=== PATIENT | male | born 1965 | race Caucasian/White ===

== ENCOUNTER 2021-06-20 10:54 | Observation (INO) | payer BC ==
--- NOTE | 2021-06-20 14:14 | ED ---
General Adult HPI - General Chief complaint: Arrhythmia/Palpitations Stated complaint: HR Ilregular Time Seen by Provider: 06/20/21 14:00 Source: patient, RN notes reviewed, old records reviewed Mode of arrival: ambulatory Limitations: no limitations - History of Present Illness Initial comments: This is a 56-year-old male who presents emergency Department with no significant past medical history. Patient comes in because he started having palpitations in his chest 9 days ago. Patient states had intermittent episodes since then. Patient states he went to the hospital about a week ago and they placed a monitor on him while in the monitor on he did have an episode but no one is been able to get Bactrim as to what was going on. Patient states he had another episode today lasted about 20 minutes and asked where he decided come to our hospital. Patient denies any chest pain. Patient denies any palpitations currently. Patient shortness of breath or difficulty breathing currently but he states when it occurs he is mildly short of breath. Patient denies any swelling to legs or calf tenderness. Patient denies any abdominal pain patient denies nausea vomiting diarrhea. Patient denies any recent fever chills or cough. - Related Data Home Medications Medication Instructions Recorded Confirmed Beclomethasone Dipropionate [Qvar 1 puff INHALATION RT-DAILY 06/20/21 06/20/21 80mcg Redihaler] Calcium Carbonate [Calcium] 600 mg PO DAILY 06/20/21 06/20/21 Levothyroxine Sodium [Euthyrox] 150 mcg PO DAILY 06/20/21 06/20/21 Montelukast Sodium [Singulair] 10 mg PO DAILY 06/20/21 06/20/21 Multivitamins, Thera [Multivitamin 1 tab PO DAILY 06/20/21 06/20/21 (formulary)] Allergies Allergy/AdvReac Type Severity Reaction Status Date / Time No Known Allergies Allergy Verified 06/20/21 15:44 Review of Systems ROS Statement: Those systems with pertinent positive or pertinent negative responses have been documented in the HPI. ROS Other: All systems not noted in ROS Statement are negative. Past Medical History Past Medical History: Asthma, Thyroid Disorder History of Any Multi-Drug Resistant Organisms: None Reported Past Surgical History: Hernia Repair Past Psychological History: Depression Smoking Status: Second hand smoke exposure Past Alcohol Use History: Occasional Past Drug Use History: None Reported General Exam - General Exam Comments Initial Comments: GENERAL: Patient is well-developed and well-nourished. Patient is nontoxic and well- hydrated and is in no acute distress. ENT: Neck is soft and supple. No significant lymphadenopathy is noted. Oropharynx is clear. Moist mucous membranes. Neck has full range of motion without eliciting any pain. EYES: The sclera were anicteric and conjunctiva were pink and moist. Extraocular movements were intact and pupils were equal round and reactive to light. Eyelids were unremarkable. PULMONARY: Unlabored respirations. Good breath sounds bilaterally. No audible rales rhonchi or wheezing was noted. CARDIOVASCULAR: There is a regular rate and rhythm without any murmurs gallops or rubs. ABDOMEN: Soft and nontender with normal bowel sounds. SKIN: Skin is clear with no lesions or rashes and otherwise unremarkable. NEUROLOGIC: Patient is alert and oriented x3. Cranial nerves II through XII are grossly intact. Motor and sensory are also intact. Normal speech, volume and content. Symmetrical smile. MUSCULOSKELETAL: Normal extremities with adequate strength and full range of motion. No lower extremity swelling or edema. No calf tenderness. LYMPHATICS: No significant lymphadenopathy is noted PSYCHIATRIC: Normal psychiatric evaluation. Limitations: no limitations Course Vital Signs 06/20/21 06/20/21 11:57 16:39 Temperature 98.6 F Pulse Rate 64 60 Respiratory 20 18 Rate Blood Pressure 134/80 138/79 O2 Sat by Pulse 97 97 Oximetry Medical Decision Making - Medical Decision Making EKG shows normal sinus rhythm at 65 bpm AR interval 232 QRS is under QT intervals 362 QTC is 376. Patient's EKG shows Q waves in II, III, and F aVF as well as inverted T waves. I have no old EKG to compare to. Chest x-ray shows no acute abnormality. I spoke with Dr. Salmeron and he agreed to admit the patient admitted the patient and I consult cardiology. I did get the rhythm strip from the patient's altered monitor and it did show heart rate of up to 158 beats a minute it was indeterminate whether was sinus or flutter and it was of poor quality. Patient's troponin was mildly bumps I repeated EKG that was not having any chest pain or palpitations. EKG showed normal sinus rhythm at 60 bpm AR interval 232 QRS is under 2 QT interval 36 QTC is 391 per patient's EKG shows no ST segment elevation or depression. - Lab Data Result diagrams: 06/20/21 14:01 06/20/21 14:01 Lab Results 06/20/21 06/20/21 06/20/21 Range/Units 14:01 14: 14:01 WBC 7.2 (3.8-10.6) k/uL RBC 4.86 (4.30-5.90) m/uL Hgb 14.8 (13.0-17.5) gm/dL Hct 46.6 (39.0-53.0) % MCV 95.9 (80.0-100.0) fL MCH 30.5 (25.0-35.0) pg MCHC 31.8 (31.0-37.0) g/dL RDW 13.2 (11.5-15.5) % Plt Count 198 (150-450) k/uL MPV 7.9 Neutrophils % 65 % Lymphocytes % 25 % Monocytes % 5 % Eosinophils % 2 % Basophils % 0 % Neutrophils # 4.7 (1.3-7.7) k/uL Lymphocytes # 1.8 (1.0-4.8) k/uL Monocytes # 0.4 (0-1.0) k/uL Eosinophils # 0.2 (0-0.7) k/uL Basophils # 0.0 (0-0.2) k/uL Hypochromasia Slight PT 10.9 (9.0-12.0) sec INR 1.0 (<1.2) APTT 26.6 (22.0-30.0) sec D-Dimer 0.18 (<0.60) mg/L FEU Sodium 137 (137-145) mmol/L Potassium 5.7 H (3.5-5.1) mmol/L Chloride 106 (98-107) mmol/L Carbon Dioxide 21 L (22-30) mmol/L Anion Gap 10 mmol/L BUN 15 (9-20) mg/dL Creatinine 0.73 (0.66-1.25) mg/dL Est GFR (CKD-EPI)AfAm >90 (>60 ml/min/1.73 sqM) Est GFR (CKD-EPI)NonAf >90 (>60 ml/min/1.73 sqM) Glucose 88 (74-99) mg/dL Calcium 9.2 (8.4-10.2) mg/dL Magnesium 2.1 (1.6-2.3) mg/dL Total Bilirubin 1.1 (0.2-1.3) mg/dL AST 52 (17-59) U/L ALT 30 (4-49) U/L Alkaline Phosphatase 86 (38-126) U/L Troponin I (0.000-0.034) ng/mL Total Protein 7.8 (6.3-8.2) g/dL Albumin 4.5 (3.5-5.0) g/dL TSH 0.608 (0.465-4.680) mIU/L 06/20/21 Range/Units 14:01 WBC (3.8-10.6) k/uL RBC (4.30-5.90) m/uL Hgb (13.0-17.5) gm/dL Hct (39.0-53.0) % MCV (80.0-100.0) fL MCH (25.0-35.0) pg MCHC (31.0-37.0) g/dL RDW (11.5-15.5) % Plt Count (150-450) k/uL MPV Neutrophils % % Lymphocytes % % Monocytes % % Eosinophils % % Basophils % % Neutrophils # (1.3-7.7) k/uL Lymphocytes # (1.0-4.8) k/uL Monocytes # (0-1.0) k/uL Eosinophils # (0-0.7) k/uL Basophils # (0-0.2) k/uL Hypochromasia PT (9.0-12.0) sec INR (<1.2) APTT (22.0-30.0) sec D-Dimer (<0.60) mg/L FEU Sodium (137-145) mmol/L Potassium (3.5-5.1) mmol/L Chloride (98-107) mmol/L Carbon Dioxide (22-30) mmol/L Anion Gap mmol/L BUN (9-20) mg/dL Creatinine (0.66-1.25) mg/dL Est GFR (CKD-EPI)AfAm (>60 ml/min/1.73 sqM) Est GFR (CKD-EPI)NonAf (>60 ml/min/1.73 sqM) Glucose (74-99) mg/dL Calcium (8.4-10.2) mg/dL Magnesium (1.6-2.3) mg/dL Total Bilirubin (0.2-1.3) mg/dL AST (17-59) U/L ALT (4-49) U/L Alkaline Phosphatase (38-126) U/L Troponin I <0.012 (0.000-0.034) ng/mL Total Protein (6.3-8.2) g/dL Albumin (3.5-5.0) g/dL TSH (0.465-4.680) mIU/L Disposition Clinical Impression: Tachycardia Disposition: ADMITTED IP TO THIS [facility] Time of Disposition: 16:37
[2021-06-20 14:15] LABS: Basophils % (A) 0 %; Eosinophils # (A) 0.2 k/uL (0-0.7); Eosinophils % (A) 2 %; HCT 46.6 % (39.0-53.0); HGB 14.8 gm/dL (13.0-17.5); Hypochromasia Slight; Lymphocytes # (A) 1.8 k/uL (1.0-4.8); Lymphocytes % (A) 25 %; MCH 30.5 pg (25.0-35.0); MCHC 31.8 g/dL (31.0-37.0); MCV 95.9 fL (80.0-100.0); Mean Platelet Volume 7.9; Monocytes # (A) 0.4 k/uL (0-1.0); Monocytes % (A) 5 %; Neutrophils # (A) 4.7 k/uL (1.3-7.7); Neutrophils % (A) 65 %; Platelet Count 198 k/uL (150-450); RBC 4.86 m/uL (4.30-5.90); RDW 13.2 % (11.5-15.5); WBC 7.2 k/uL (3.8-10.6)
--- NOTE | 2021-06-20 14:26 | XR ---
EXAMINATION TYPE: XR chest 2V DATE OF EXAM: 06/20/2021 COMPARISON: NONE TECHNIQUE: PA and lateral views submitted. HISTORY: Dysrhythmia FINDINGS: The lungs are clear and there is no pneumothorax, pleural effusion, or focal pneumonia. Heart size prominent. No overt failure. IMPRESSION: 1. No acute process.
[2021-06-20 14:27] LABS: ALT 30 U/L (4-49); AST 52 U/L (17-59); African American GFR (CKD) >90 (>60 ml/min/1.73 sqM); Albumin 4.5 g/dL (3.5-5.0); Alkaline Phosphatase 86 U/L (38-126); Anion Gap 10 mmol/L; Blood Urea Nitrogen 15 mg/dL (9-20); Calcium 9.2 mg/dL (8.4-10.2); Carbon Dioxide 21 mmol/L (22-30); Chloride 106 mmol/L (98-107); Glucose 88 mg/dL (74-99); Magnesium 2.1 mg/dL (1.6-2.3); Non-African American GFR(CKD) >90 (>60 ml/min/1.73 sqM); Sodium 137 mmol/L (137-145); Total Bilirubin 1.1 mg/dL (0.2-1.3); Total Protein 7.8 g/dL (6.3-8.2)
[2021-06-20 14:29] LABS: Partial Thromboplastin Time 26.6 sec (22.0-30.0); Prothrombin Time 10.9 sec (9.0-12.0)
[2021-06-20 14:31] LABS: Potassium 5.7 mmol/L (3.5-5.1)
[2021-06-20] MEDS ORDERED: NITROGLYCERIN SL TABS 0.4 MG TAB SUBLINGUAL PRN (16:38)
[2021-06-20] MEDS ORDERED: NITROGLYCERIN OINT 1 INCH/GM PACKET TOPICAL SCH (18:00)
[2021-06-20 18:11] LABS: Amphetamine Screen,Urine Not Detected (NotDetected); Barbiturate Screen,Urine Not Detected (NotDetected); Benzodiazepines Screen,Urine Not Detected (NotDetected); Cocaine Screen,Urine Not Detected (NotDetected); Methadone Screen, Urine Not Detected (NotDetected); Opiate Screen,Urine Not Detected (NotDetected); Oxycodone Screen, Urine Not Detected (NotDetected); Phencyclidine Screen,Urine Not Detected (NotDetected); Tricyclic Antidepressant,Urine Not Detected (NotDetected); Urn Cannabinoid Scrn Not Detected (NotDetected)
[2021-06-20] MEDS ORDERED: ONDANSETRON 4 MG/2 ML VIAL IVP PRN (21:14)
[2021-06-20] MEDS ORDERED: CALCIUM CARBONATE 500 MG CHEWABLE PO PRN (21:14)
[2021-06-20] MEDS ORDERED: MELATONIN 3 MG TABLET PO PRN (21:14)
[2021-06-20] MEDS ORDERED: NALOXONE 0.4 MG/ML 1 ML VIAL IV PRN (21:14)
[2021-06-20] MEDS ORDERED: ACETAMINOPHEN TAB 325 MG TAB PO PRN (21:14)
[2021-06-20] MEDS ORDERED: LACTULOSE 20 GM/30 ML CUP PO PRN (21:14)
[2021-06-20] MEDS ORDERED: ALPRAZolam 0.25 MG TAB PO PRN (21:14)
--- NOTE | 2021-06-20 21:14 | P.HPIM ---
History of Present Illness H&P Date: 06/20/21 Chief Complaint: Heart pounding This is a 56-year-old patient who follows with Dr. Duke. Chronic stable medical conditions include hypothyroid, asthma, depression for which she does not take medications. A week ago patient had an episode of palpitations lasting for less than half an hour. He had the same episode again and decided to go to his local hospital. He was given a sales management intern and to get home. He starting having a local skin ALLERGY reaction with the tapes and some chronic back. Does although the results of the monitor. He was doing well until today. He again felt his heart to be pounding. Lasted for about 20 minutes. [place] diet and a headache. No dizziness no lightheadedness. No chest pressure. Denies taking excessive caffeine nor does he take any drugs. Review of systems: GEN.: Tired EYES: None HEENT: None NECK: None RESPIRATORY: None CARDIOVASCULAR: As above GASTROINTESTINAL: None GENITOURINARY: None MUSCULOSKELETAL: None LYMPHATICS: None HEMATOLOGICAL: None PSYCHIATRY: None NEUROLOGICAL: None Past medical history to include: Hypothyroid, asthma, depression Social history: . 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 Alcohol occasionally. No smoking. No recreational drugs. Family history: Reviewed, noncontributory to presentation Physical examination: VITAL SIGNS: 98.6, 64, 20, 134/80, 97% room air GENERAL: BMI 45.2, laying in bed, awake, comfortable. EYES: Pupils equal. Conjunctiva normal. HEENT: External appearance of nose and ears normal, oral cavity grossly normal. NECK: JVD not raised; masses not palpable. HEART: First and second heart sounds are normal; no edema. LUNGS: Respiratory rate normal; clear to auscultation. ABDOMEN: Soft, nontender, liver spleen not palpable, no masses palpable. PSYCH: Alert and oriented x3; mood and affect normal. MUSCULOSKELETAL:No Clubbing/cyanosis;muscles-grossly intact NEUROLOGICAL: Cranial nerves grossly intact; no facial asymmetry, power and sensation grossly intact. LYMPHATICS: No lymph nodes palpable in the axilla and neck INVESTIGATIONS, reviewed in the clinical context: White count 7.2 hemoglobin 14.8 platelets 198 potassium hemolyzed creatinine 0.73 Troponin I 0.012, 0.035, 0.015 TSH 0.608 Urine drug screen negative Coronavirus [PCR]: Not detected EKG tracing personally reviewed by me-no sinus rhythm Chest x-ray film personally reviewed by me-cardiomegaly Assessment and plan: -This patient presented episodes of palpitation of weeks ago and then the following day. Had the same again today. For that the patient's TSH is low and patient is is therefore over replaced with Synthroid. Cut back the dose to 125 g. We'll skip her dose tomorrow. 2-D echocardiogram as patient has cardiomegaly on the check stat x-ray. Telemetry. Cardiology consultation -Mild troponin leak. Could be from underlying arrhythmia. 2-D echocardiogram. -Morbid obesity BMI 45.2 Consult dietitian -Intermittent asthma Every and Singulair -Hypothyroid with over replacement Cut back Synthroid 125 g. Skip tomorrow's dose. 2-D echo. Current diagnoses of Synthroid. Resume home medications. Consult dietitian. Telemetry. Care was discussed with the patient. Past Medical History Past Medical History: Asthma, Thyroid Disorder History of Any Multi-Drug Resistant Organisms: None Reported Past Surgical History: Hernia Repair Past Psychological History: Depression Smoking Status: Second hand smoke exposure Past Alcohol Use History: Occasional Past Drug Use History: None Reported Medications and Allergies Home Medications Medication Instructions Recorded Confirmed Type Beclomethasone Dipropionate [Qvar 1 puff INHALATION RT-DAILY 06/20/21 06/20/21 History 80mcg Redihaler] Calcium Carbonate [Calcium] 600 mg PO DAILY 06/20/21 06/20/21 History Levothyroxine Sodium [Euthyrox] 150 mcg PO DAILY 06/20/21 06/20/21 History Montelukast Sodium [Singulair] 10 mg PO DAILY 06/20/21 06/20/21 History Multivitamins, Thera [Multivitamin 1 tab PO DAILY 06/20/21 06/20/21 History (formulary)] Allergies Allergy/AdvReac Type Severity Reaction Status Date / Time No Known Allergies Allergy Verified 06/20/21 15:44 Physical Exam Vitals: Vital Signs Temp Pulse Resp BP Pulse Ox 06/20/21 20:38 70 18 114/68 96 06/20/21 16:39 60 18 138/79 97 06/20/21 11:57 98.6 F 64 20 134/80 97 Intake and Output 06/20/21 06/20/21 06/20/21 06:59 14:59 22:59 Other: Weight 127.006 kg Results CBC & Chem 7: 06/20/21 14:01 06/20/21 14:01 Labs: Abnormal Lab Results - Last 24 Hours (Table) 06/20/21 06/20/21 Range/Units 14:01 16:55 Potassium 5.7 H (3.5-5.1) mmol/L Carbon Dioxide 21 L (22-30) mmol/L Troponin I 0.035 H* (0.000-0.034) ng/mL
[2021-06-21] MEDS ORDERED: FLUTICASONE 110 MCG INHALER INHALATION SCH (08:00)
[2021-06-21] MEDS ORDERED: SODIUM CHLORIDE 0.9% 1,000 ML IV SCH ×2 (08:15)
[2021-06-21] MEDS ORDERED: MONTELUKAST 10 MG TAB PO SCH (09:00)
[2021-06-21] MEDS ORDERED: ASPIRIN 325 MG TAB PO SCH (09:00)
[2021-06-21] MEDS ORDERED: ceFAZolin 3 GM in SODIUM CHLORIDE 0.9% 100 ML IVPB ONE (09:15)
[2021-06-21 09:16] LABS: Chol/HDL Ratio 3.83 Ratio; LDL Cholesterol,Calculated 95.3 mg/dL (0.0-131.0); VLDL Calculation 18.46 mg/dL (5.00-40.00)
[2021-06-21 09:16] LABS: Glucose,Whole Blood 144 mg/dL (75-99)
--- NOTE | 2021-06-21 09:59 | P.CRDCN ---
History of Present Illness History of present illness: HISTORY OF PRESENTING ILLNESS This is a pleasant 56-year-old male past medical history significant for asthma, hypothyroidism. He does not follow with a contracting officer. We have been asked to see in consultation for palpitations and tachycardia. Patient presents emergency department with complaints of palpitations. He states on 06/12/21, he began to have intermittent palpitations. He describes it as feeling that his chest is "pounding, he has a "funny" feeling, then feels his heart racing. He then proceeds to feel generalized fatigue and tired and then has a headache. He states this happened once on 06/12/21 afternoon and then Saturday. He states on 06/13/21 he presented to [facility] emergency department and was discharged with a heart monitor. He states that he does not wear the heart monitor for the full amount of time due to having a reaction to the left side of his chest. He states he did have another episode on 06/13/21 night when he was wearing the monitor. He states he had a left-sided chest rash and increased swelling from the tape/monitor and he removed it. He states these symptoms started on 06/12/21, he has never had this sensation before. He denies any chest pain, shortness of breath, lightheadedness, dizziness, syncope or near-syncope. He denies any history of an arrhythmia, coronary artery disease, [place], stroke, diabetes, hypertension, dyslipidemia. He denies any tobacco use or alcohol use. DIAGNOSTICS [facility] Holter monitor reviewed patient maintained sinus mechanism,On 06/13 night he did have some PACS. No evidence of arrhythmia or tachycardia EKG reveals sinus rhythm, heart rate 62, T wave inversions in inferior leads, V5 and V6. No acute changes to suggest ischemia. No prior EKG to compare. Telemetry tracings indicate sinus mechanism, heart rate 50s70s, no arrhythmia and no tachycardia noted. Chest xray no acute cardiopulmonary process Laboratory reviewed, CBC unremarkable, d-dimer negative, sodium 137, potassium 5.7, BUN 15, syncope and 0.7, troponin negative 3, TSH 0.6, urine toxicology negative, Covid negative Current home medications include levothyroxine 150mcg daily, Ovar Redihaler, Sinulair, Calcium, multivitam REVIEW OF SYSTEMS At the time of my exam: CONSTITUTIONAL: Denies fever or chills. CARDIOVASCULAR: Denies chest pain, shortness of breath, orthopnea, PND or palpitations. RESPIRATORY: Denies cough. GASTROINTESTINAL: Denies abdominal pain, diarrhea, constipation, nausea or vomiting. MUSCULOSKELETAL: Denies myalgias. NEUROLOGIC: Denies numbness, tingling, headacbe or weakness. ENDOCRINE: Denies fatigue, weight change, polydipsia or polyurina. GENITOURINARY: Denies burning, hematuria or urgency with micturation. HEMATOLOGIC: Denies history of anemia or bleeding. PHYSICAL EXAMINATION Blood pressure 124/73, heart 64, afebrile, oxygen saturations 97% on room air CONSTITUTIONAL: No apparent distress. HEENT: Head is normocephalic. Pupils are equal, round. Sclerae anicteric. Mucous membranes of the mouth are moist. No JVD. No carotid bruit. CHEST EXAMINATION: Lungs are clear to auscultation. No chest wall tenderness is noted on palpation or with deep breathing. HEART EXAMINATION: Regular rate and rhythm. S1, S2 heard. No murmurs, gallops or rub. ABDOMEN: Soft, nontender. Positive bowel sounds. EXTREMITIES: 2+ peripheral pulses, no lower extremity edema and no calf tenderness. NEUROLOGIC EXAMINATION: Patient is awake, alert and oriented x3. ASSESSMENT Palpitations History of Asthma History of hypothyroidism Hyperkalemia PLAN Obtain 2D echocardiogram Due to patient's reaction to the Holter monitor tape, we recommend Loop Recorder Implantation, patient is agreeable I have discussed the risks, benefits and alternative therapies for the above- mentioned procedure and for both sedation/analgesia, antibiotics, if indicated, as they pertain to this patient. The patient has indicated understanding and acceptance of the risks and procedures discussed. Questions have been answered appropriately and he is agreeable to move forward with the above-stated procedure. Further recommendations based on clinical course Nurse Practitioner note has been reviewed, I agree with a documented findings and plan of care. Patient was seen and examined. Past Medical History Past Medical History: Asthma, Thyroid Disorder Additional Past Medical History / Comment(s): C-diff several years ago History of Any Multi-Drug Resistant Organisms: None Reported Past Surgical History: Hernia Repair Additional Past Surgical History / Comment(s): distal tendon repair right arm 14 years ago Past Anesthesia/Blood Transfusion Reactions: No Reported Reaction Past Psychological History: Depression Smoking Status: Second hand smoke exposure Past Alcohol Use History: Occasional Past Drug Use History: None Reported - Past Family History Father Family Medical History: Coronary Artery Disease (CAD) Additional Family Medical History / Comment(s): Stents placed Mother Additional Family Medical History / Comment(s): lung cancer Medications and Allergies Home Medications Medication Instructions Recorded Confirmed Type Beclomethasone Dipropionate [Qvar 1 puff INHALATION RT-DAILY 06/20/21 06/20/21 History 80mcg Redihaler] Calcium Carbonate [Calcium] 600 mg PO DAILY 06/20/21 06/20/21 History Levothyroxine Sodium [Euthyrox] 150 mcg PO DAILY 06/20/21 06/20/21 History Montelukast Sodium [Singulair] 10 mg PO DAILY 06/20/21 06/20/21 History Multivitamins, Thera [Multivitamin 1 tab PO DAILY 06/20/21 06/20/21 History (formulary)] Allergies Allergy/AdvReac Type Severity Reaction Status Date / Time No Known Allergies Allergy Verified 06/20/21 15:44 Physical Exam Vitals: Vital Signs Temp Pulse Pulse Pulse Resp BP BP 06/21/21 07:00 98.2 F 64 18 124/73 06/21/21 05:51 97.8 F 55 L 16 119/76 06/21/21 02:00 72 18 06/20/21 23:20 98.3 F 71 16 123/77 06/20/21 22:05 72 18 136/97 06/20/21 20:38 70 18 114/68 06/20/21 20:00 71 18 06/20/21 16:39 60 18 138/79 06/20/21 12:28 64 06/20/21 11:57 98.6 F 64 20 134/80 Pulse Ox 06/21/21 07:00 97 06/21/21 05:51 96 06/21/21 02:00 06/20/21 23:20 98 06/20/21 22:05 96 06/20/21 20:38 96 06/20/21 20:00 06/20/21 16:39 97 06/20/21 12:28 06/20/21 11:57 97 Intake and Output 06/20/21 06/21/21 06/21/21 22:59 06:59 14:59 Other: Weight 127.006 kg Results 06/20/21 14:01 06/20/21 14:01 Cardiac Enzymes 06/20/21 06/20/21 06/20/21 Range/Units 14:01 14:01 16:55 AST 52 (17-59) U/L Troponin I <0.012 0.035 H* (0.000-0.034) ng/mL 06/20/21 Range/Units 19:51 AST (17-59) U/L Troponin I 0.015 (0.000-0.034) ng/mL Coagulation 06/20/21 Range/Units 14:01 PT 10.9 (9.0-12.0) sec APTT 26.6 (22.0-30.0) sec CBC 06/20/21 Range/Units 14:01 WBC 7.2 (3.8-10.6) k/uL RBC 4.86 (4.30-5.90) m/uL Hgb 14.8 (13.0-17.5) gm/dL Hct 46.6 (39.0-53.0) % Plt Count 198 (150-450) k/uL Comprehensive Metabolic Panel 06/20/21 Range/Units 14:01 Sodium 137 (137-145) mmol/L Potassium 5.7 H (3.5-5.1) mmol/L Chloride 106 (98-107) mmol/L Carbon Dioxide 21 L (22-30) mmol/L BUN 15 (9-20) mg/dL Creatinine 0.73 (0.66-1.25) mg/dL Glucose 88 (74-99) mg/dL Calcium 9.2 (8.4-10.2) mg/dL AST 52 (17-59) U/L ALT 30 (4-49) U/L Alkaline Phosphatase 86 (38-126) U/L Total Protein 7.8 (6.3-8.2) g/dL Albumin 4.5 (3.5-5.0) g/dL Current Medications Generic Name Dose Route Start Last Admin Trade Name Freq PRN Reason Stop Dose Admin Acetaminophen 650 mg 06/20/21 21:14 06/21/21 00:35 Acetaminophen Tab 325 Mg Tab PO 650 mg Q6HR PRN Administration Mild Pain or Fever > 100.5 Alprazolam 0.25 mg 06/20/21 21:14 Alprazolam 0.25 Mg Tab PO Q6HR PRN Anxiety Aspirin 325 mg 06/21/21 09:00 06/21/21 07:11 Aspirin 325 Mg Tab PO 325 mg DAILY KIARA Administration Calcium Carbonate/Glycine 1,000 mg 06/20/21 21:14 Calcium Carbonate 500 Mg Chewable PO Q4HR PRN Dyspepsia Fluticasone Propionate 1 puff 06/21/21 08:00 Fluticasone 110 Mcg Inhaler INHALATION RT-BID KIARA Lactulose 20 gm 06/20/21 21:14 Lactulose 20 Gm/30 Ml Cup PO DAILY PRN Constipation Levothyroxine Sodium 125 mcg 06/22/21 06:30 Levothyroxine 125 Mcg Tab PO DAILY@0630 KIARA Melatonin 3 mg 06/20/21 21:14 Melatonin 3 Mg Tablet PO HS PRN Insomnia Montelukast Sodium 10 mg 06/21/21 09:00 06/21/21 07:11 Montelukast 10 Mg Tab PO 10 mg DAILY KIARA Administration Naloxone HCl 0.2 mg 06/20/21 21:14 Naloxone 0.4 Mg/Ml 1 Ml Vial IV Q2M PRN Opioid Reversal Nitroglycerin 0.4 mg 06/20/21 16:38 Nitroglycerin Sl Tabs 0.4 Mg Tab SUBLINGUAL Q5M PRN Chest Pain Ondansetron HCl 4 mg 06/20/21 21:14 Ondansetron 4 Mg/2 Ml Vial IVP Q8HR PRN Nausea And Vomiting Intake and Output 06/20/21 06/21/21 06/21/21 22:59 06:59 14:59 Other: Weight 127.006 kg 06/20/21 14:01 06/20/21 14:01
[2021-06-21] MEDS ORDERED: MIDAZOLAM 2 MG/2 ML VIAL IV ONE ×2 (10:28)
[2021-06-21] MEDS ORDERED: IV FLUID CONTINUATION 900 ML IV ONE (10:28)
[2021-06-21 11:19] VITALS: BP 122/73; PULSE 65; RESP 16; TEMP 97.6
[2021-06-21 11:36] VITALS: BMI 45.1
--- NOTE | 2021-06-21 11:52 | P.EPPROC ---
- EP Procedure Note Electrophysiology Procedure Note: Loop monitor implant Primary physicians: Dr. Duke Application Services Manager: Dr. Gamino Indication: Recurrent palpitations, intolerant of event monitor EKG patches with severe reaction on the skin Patient was brought to the EP lab in a fasting state. Written informed consent was obtained prior to the procedure. The left pectoral area was prepped and draped per protocol. Intravenous antibiotic was administered preoperatively. A subcutaneous Loop monitor was implanted successfully and the wound was closed per protocol. The device was programmed to detect significant woo- arrhythmic and tachy-arrhythmic events, per protocol. Device and programming details: Monitoring for tachy /arrhythmias Patient underwent EP procedure under conscious sedation/moderate sedation, monitoring of the level of consciousness and physiologic parameters including but not limited to vital signs and oxygenation. Patient tolerated the procedure well without any acute complications. Start time: 1035 Stop time: 1052
--- NOTE | 2021-06-21 18:55 | P.DS ---
Providers Date of admission: 06/20/21 16:53 Expected date of discharge: 06/21/21 Attending physician: Jerry Salmeron Consults: 06/20/21 16:38 Consult Physician Urgent Consulting Provider: [facility] Consult Reason/Comments: Tachycardia Do you want consulting provider notified?: Yes Primary care physician: Zbigniew [facility] Course: Chief Complaint: Heart pounding This is a 56-year-old patient who follows with Dr. Duke. Chronic stable medical conditions include hypothyroid, asthma, depression for which she does not take medications. A week ago patient had an episode of palpitations lasting for less than half an hour. He had the same episode again and decided to go to his local hospital. He was given a residential monitor and to get home. He starting having a local skin ALLERGY reaction with the tapes and some chronic back. Does although the results of the monitor. He was doing well until today. He again felt his heart to be pounding. Lasted for about 20 minutes. [place] diet and a headache. No dizziness no lightheadedness. No chest pressure. Denies taking excessive caffeine nor does he take any drugs. June 21: Due to local reaction to Holter monitor tape patient is offered a loop monitor by Dr. Rafael Gamino. No further episodes. He'll follow-up for Dr. Gamino. Patient is over replaced with Synthroid has dose cut back to 125 g. Patient to have a repeat TSH checked in 4 weeks. Consultation: Dr. Rafael Gamino from cardiology Past medical history to include: Hypothyroid, asthma, depression Social history: . 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 Alcohol occasionally. No smoking. No recreational drugs. Family history: Reviewed, noncontributory to presentation Physical examination: VITAL SIGNS: 97.6, 65, 16, 122.73, 96% room air GENERAL: Sitting up, awake, comfortable. We'll monitor placed EYES: Pupils equal. Conjunctiva normal. HEENT: External appearance of nose and ears normal, oral cavity grossly normal. NECK: JVD not raised; masses not palpable. HEART: First and second heart sounds are normal; no edema. LUNGS: Respiratory rate normal; clear to auscultation. ABDOMEN: Soft, nontender, liver spleen not palpable, no masses palpable. PSYCH: Alert and oriented x3; mood and affect normal. MUSCULOSKELETAL:No Clubbing/cyanosis;muscles-grossly intact INVESTIGATIONS, reviewed in the clinical context: LDL 95 White count 7.2 hemoglobin 14.8 platelets 198 potassium hemolyzed creatinine 0.73 Troponin I 0.012, 0.035, 0.015 TSH 0.608 Urine drug screen negative Coronavirus [PCR]: Not detected EKG tracing personally reviewed by me-no sinus rhythm Chest x-ray film personally reviewed by me-cardiomegaly Assessment and plan: -Palpitation, likely from underlying arrhythmia. 2 2-D reaction from Holter monitor tape. Loop monitor placed. Also patient's over replaced with Synthroid dose has been cut back. -Mild troponin leak. Could be from underlying arrhythmia. -Morbid obesity BMI 45.2 Consult dietitian -Intermittent asthma Inhaler Singulair -Hypothyroid with over replacement Cut back Synthroid 125 g. repeat TSH in 4 weeks Disposition: Home Plan - Discharge Summary Discharge Rx Participant: No New Discharge Prescriptions: New Levothyroxine Sodium [Synthroid] 125 mcg PO DAILY@0630 #30 tab Continue Montelukast Sodium [Singulair] 10 mg PO DAILY Beclomethasone Dipropionate [Qvar 80mcg Redihaler] 1 puff INHALATION RT-DAILY Multivitamins, Thera [Multivitamin (formulary)] 1 tab PO DAILY Calcium Carbonate [Calcium] 600 mg PO DAILY Discontinued Levothyroxine Sodium [Euthyrox] 150 mcg PO DAILY Discharge Medication List Beclomethasone Dipropionate [Qvar 80mcg Redihaler] 1 puff INHALATION RT-DAILY 06/20/21 [History] Calcium Carbonate [Calcium] 600 mg PO DAILY 06/20/21 [History] Montelukast Sodium [Singulair] 10 mg PO DAILY 06/20/21 [History] Multivitamins, Thera [Multivitamin (formulary)] 1 tab PO DAILY 06/20/21 [History] Levothyroxine Sodium [Synthroid] 125 mcg PO DAILY@0630 #30 tab 06/21/21 [Rx] Follow up Appointment(s)/Referral(s): Servando Gamino MD [STAFF PHYSICIAN] - 2 Weeks Zbigniew Duke MD [Primary Care Provider] - 1-2 days Patient Instructions/Handouts: Cardiac Loop Recorder Insertion (GEN) Discharge/Stand Alone Forms: Work/School Release Discharge Disposition: HOME SELF-CARE
[2021-06-22] MEDS ORDERED: LEVOTHYROXINE 125 MCG TAB PO SCH (06:30)
[2021-06-22] MEDS ORDERED: ceFAZolin 1 GM in SODIUM CHLORIDE 0.9% 250 ML IRRIGATION PRN (07:00)
== END 2021-06-21 11:44 | disposition home or self-care (01) ==
LOC: EC 10:54 → 6NMEDSUR 16:53
PROVIDERS: ADMIT Hospitalist; ATTEND Hospitalist
DX: R00.2 Palpitations (principal); R79.89 Other specified abnormal findings of blood chemistry; E87.5 Hyperkalemia; J45.20 Mild intermittent asthma, uncomplicated; E03.9 Hypothyroidism, unspecified; I51.7 Cardiomegaly; R00.0 Tachycardia, unspecified; F32.A Depression, unspecified; R51.9 Headache, unspecified; E66.01 Morbid (severe) obesity due to excess calories; Z68.42 Body mass index [BMI] 45.0-49.9, adult; Z20.822 Contact with and (suspected) exposure to COVID-19; Z79.51 Long term (current) use of inhaled steroids; Z79.890 Hormone replacement therapy; Z79.899 Other long term (current) drug therapy; Z91.048 Other nonmedicinal substance allergy status; Z98.890 Other specified postprocedural states; Z77.22 Contact with and (suspected) exposure to environmental tobacco smoke (acute) (chronic); Z82.49 Family history of ischemic heart disease and other diseases of the circulatory system; Z80.1 Family history of malignant neoplasm of trachea, bronchus and lung
CPT/HCPCS: 99285; 36415; 93005; 33285; 85379; 80061; 80053; 83735; 84443; 84484; 85025; 85610; 85730; 80306; 87635; 71046; G0378 ×2; C1764; J2250; J0690